=== PATIENT | female | born 1955 | race Caucasian/White ===

== ENCOUNTER 2023-01-17 07:30 | Day surgery (SDC) | payer MEDICARE ==
[2023-01-17] VITALS (10 sets, daily range): BP systolic 90–122; BP diastolic 47–62; PULSE 70–75; TEMP 67.6–98.1
[~2023-01-17] VITALS: Ht 162.6 cm; Wt 56.0 kg
[2023-01-17] MEDS ORDERED: EFFEXOR-XR150 MG PO (08:21)
[2023-01-17] MEDS ORDERED: PRAVACHOL10 MG PO (08:22)
[2023-01-17] MEDS ORDERED: XANAX 0.5MG0.5 MG PO (08:22)
--- NOTE | 2023-01-17 08:39 | NUR ---
PATIENT AMBULATED TO BAY 6 WITH SLOW GAIT AND USE OF CANE. ALERT AND ORIENTED X4. PATIENT STATED UNDERSTANDING OF PROCEDURE. CONSENTS SIGNED. ASSESSMENT COMPLETED. 18G IV STARTED IN RIGHT WRIST. BLOOD RETURN NOTED. LR INFUSING WITHOUT DIFFICULTIES. WARM BLANKET PROVIDED. NO FURTHER NEEDS NOTED. RESTING IN COT. CALL LIGHT IN REACH.
--- NOTE | 2023-01-17 12:45 | NUR ---
Pt. to the floor from PACU. Pt. is A&OX3, Shift assessment complte. Incision to rt. knee CDI. Pt. denies pain or other needs. Vitals signs WNL.
--- NOTE | 2023-01-17 17:34 | NUR ---
Pt doing well, reports that she is having a little pain, but that it is tolerable. Pt has had ordered her dinner. Call light within reach
--- NOTE | 2023-01-17 20:00 | NUR ---
PT RESTING IN BED. A&O. PT DENIES PAIN. EATING AND DRINKING. ASSISTED PT TO BR WITH CANE. STEADY GAIT. NO NEEDS AT THIS TIME. CALL LIGHT IN REACH.
[2023-01-18 03:38] VITALS: BP 85/51; PULSE 71; TEMP 97.9
[2023-01-18 05:32] LABS: HEMOGLOBIN 11.5 g/dl (12.5-16.0)
[2023-01-18 05:35] LABS: HEMATOCRIT 35.3 % (37.0-47.0)
[2023-01-18 05:47] LABS: CALCIUM 9.2 mg/dL (8.4-10.2); CREATININE, serum 0.83 mg/dL (0.57-1.11); POTASSIUM 4.3 mmol/L (3.5-4.5)
[2023-01-18 07:56] VITALS: BP 95/59; PULSE 77; TEMP 97.7
--- NOTE | 2023-01-18 09:45 | NUR ---
PATIENT ALERT AND ORIENTED X4. VSS. PATIENT HERE FOR RTK. DRESSING IN PLACE. PATIENT DENIES ANY PAIN AT THIS TIME. IV TO RIGHT WRIST, INT AND FLUSHES WELL. NO FURTHER NEEDS. CALL LIGHT IN REACH. PATIENT TO WORK WITH THERAPY THIS MORNING.
--- NOTE | 2023-01-18 12:33 | NUR ---
D: Initial visit: Director Agricultural Services stopped by room on rounds. Pt was resting and content. A: Pt has no needs right now. P: Director Agricultural Services informed pt that if she needed anything to let her nurse know. Director Agricultural Services will follow up as needed.
--- NOTE | 2023-01-18 12:43 | NUR ---
[employer] worker helper met with patient and her brother at bedside to discuss discharge planning. She lives in [place]. Pt sees Dr. Nora Adams and obtains medications at [facility] with no difficutlies. She has her sister Jennifer [phone] as a contact. Pt uses a cane at home for DME. She is independent with all ADLS. Pt completed a DPOA-HC with Clerk Scott as witness. SALAS provided original/copies and copy was placed in the chart. SALAS explained the PT/OT reccomendations for HH vs Outpatient PT. Pt chose PT at [facility]. Pt would like them to call her to set up the appointment. Pt intends to return home today. SALAS faxed referral to [facility] for OP PT. Discharge Plan: Home with OP PT at [facility]
[2023-01-18] MEDS ORDERED: ASPI325T6 PO (12:57)
[2023-01-18] MEDS ORDERED: CEPHALEXIN500 M1 PO (12:58)
[2023-01-18] MEDS ORDERED: NAPROSYN500 MG PO (12:58)
[2023-01-18] MEDS ORDERED: PERCOCET 325 MG1 TA2 PO (12:58)
--- NOTE | 2023-01-18 14:55 | NUR ---
DISHARGE INSTRUCTIONS PROVIDED. PATIENT EDUCATION GIVEN. IV DC'D. FOLLOW UP APPOINTMENT DISCUSSED. MEDICATIONS REVIEWED. PATIENT DENIES ANY QUESTIONS OR CONCERNS. PATIENT ESCORTED OUT VIA WHEELCHAIR.
== END 2023-01-18 11:45 | disposition home or self-care (01) ==
LOC: SDCO 07:30 → SURG 12:40 → SDCO 01-18 11:45
PROVIDERS: Physician Assistant
DX: M17.11 Unilateral primary osteoarthritis, right knee (principal); F17.200 Nicotine dependence, unspecified, uncomplicated; E78.5 Hyperlipidemia, unspecified; F41.9 Anxiety disorder, unspecified; Z79.899 Other long term (current) drug therapy
CPT/HCPCS: OP; A9284; C1713; C1776; J0690; J1100; J1580; J1885; J2250; J2270; J2704; J2795; J3010; J7120